=== PATIENT | male | born 1995 | race Caucasian/White ===

== ENCOUNTER 2021-03-11 10:45 | Emergency (ER) | payer OTHER | END 2021-03-11 14:25 | disposition home or self-care (01) | LOC: ER1 10:45 | DX: L76.22 Postprocedural hemorrhage of skin and subcutaneous tissue following other procedure (principal); S49.92XA Unspecified injury of left shoulder and upper arm, initial encounter; Z88.8 Allergy status to other drugs, medicaments and biological substances; Y83.8 Other surgical procedures as the cause of abnormal reaction of the patient, or of later complication, without mention of misadventure at the time of the procedure | CPT/HCPCS: 96372; 99284; J2270; J2405 ==